=== PATIENT | male | born 1980 | race African-American/Black ===

== ENCOUNTER 2017-09-28 15:42 | Emergency (ER) | payer OTHER ==
[~2017-09-28] VITALS: Ht 182.9 cm; Wt 136.1 kg
[~2017-09-28 15:42] MED LIST: ALBUTEROL2.5 MG/0.5 IH; AMLODIPINE BESY10 MG PO; AMOXICILLIN 50500 M1 PO; CLONIDINE HCL0.2 M2 PO; CLONIDINE-TTS0.3 MG TRANSDERM; COMBIVENT INH; COMBIVENT RESPIM4 GM INH; HYDROCHLOROTHIA25 M1 PO; KLOR-CON 1010 MEQ PO; LASIX 40 MG TAB40 M2 PO; LEVAQUIN 750 M750 MG PO; LISINOPRIL10 MG PO; NOHOMEMEDICATIONS; NORVASC10 MG PO; PREDNISOLONE 5 M5 MG PO; PREDNISONE 10 M10 M1 PO; PREDNISONE 20 M20 M1 PO; PREDNISONE 20 M20 MG PO; PREDNISONE50 MG PO; ULTRAM 50MG TAB50 MG PO; VENTOLIN HFA 1818 GM INH; VENTOLIN HFA INH8 GM INH; ZESTRIL20 MG PO
[2017-09-28] MEDS ORDERED: ULTRAM 50MG TAB50 MG PO (16:54)
[2017-09-28] MEDS ORDERED: KEFLEX500 M1 PO (16:54)
[2017-09-28] MEDS ORDERED: TESSALON PERLE100 MG PO (16:54)
[2017-09-28] MEDS ORDERED: LISINOPRIL10 MG PO (17:03)
[2017-09-28] MEDS ORDERED: NORVASC5 MG PO (17:03)
[2017-09-28 17:15] VITALS: BP 176/101
== END 2017-09-28 17:20 | disposition home or self-care (01) ==
LOC: ER 15:42
DX: J20.8 Acute bronchitis due to other specified organisms (principal); B97.89 Other viral agents as the cause of diseases classified elsewhere; Z91.14 Patient's other noncompliance with medication regimen; I10 Essential (primary) hypertension; T81.31XA Disruption of external operation (surgical) wound, not elsewhere classified, initial encounter; L03.113 Cellulitis of right upper limb; J45.909 Unspecified asthma, uncomplicated; Z87.891 Personal history of nicotine dependence

== ENCOUNTER 2017-10-09 08:39 | Emergency (ER) | payer OTHER ==
[~2017-10-09] VITALS: Ht 182.9 cm; Wt 136.1 kg
[~2017-10-09 08:39] MED LIST changes: +KEFLEX500 M1 PO; +NORVASC5 MG PO; +TESSALON PERLE100 MG PO
[2017-10-09] MEDS ORDERED: ZYRTEC10 M2 PO (08:53)
[2017-10-09] MEDS ORDERED: MOBIC7.5 MG PO (08:53)
[2017-10-09] MEDS ORDERED: NEO-POLYMYXIN-H10 ML OTIC (09:03)
[2017-10-09 10:35] VITALS: BP 157/84
== END 2017-10-09 10:38 | disposition home or self-care (01) ==
LOC: ER 08:39
DX: G89.29 Other chronic pain (principal); M25.571 Pain in right ankle and joints of right foot; H60.92 Unspecified otitis externa, left ear; I10 Essential (primary) hypertension; J45.909 Unspecified asthma, uncomplicated; Z87.891 Personal history of nicotine dependence; Z91.013 Allergy to seafood

== ENCOUNTER 2017-12-11 01:30 | Emergency (ER) | payer OTHER ==
[~2017-12-11] VITALS: Ht 193 cm; Wt 131.5 kg
--- NOTE | ~2017-12-11 | EKG ---
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1980 Requested By: Ford Patton Order Number: [id number] MD: Teofilo Lopez Measurements Intervals [place] Rate: 81 P: -26 [place]: 159 QRS: 29 QRSD: 95 T: -55 QT: 448 QTc: 520 Interpretive Statements Sinus rhythm Probable LVH with secondary repol abnrm Prolonged QT interval Compared to ECG 01/16/2014 02:06:31 ST and T wave abnormality is more pronounced Electronically Signed On 12-11-2017 8:30:18 CDT by Teofilo Lopez [email or web address] <ELECTRONICALLY SIGNED> By: Teofilo Lopez MD, [facility] 12/11/17 0830 0148 0148 Teofilo Lopez MD, [facility] /EPI
[~2017-12-11 01:30] MED LIST changes: +MOBIC7.5 MG PO; +NEO-POLYMYXIN-H10 ML OTIC; +ZYRTEC10 M2 PO
[2017-12-11 02:46] LABS: ABSOLUTE NEUTROPHILS 4.8 thou/uL (1.4-8.2); BASOPHILS 0.8 % (0.0-2.0); EOSINOPHILS 1.8 % (0.0-3.0); HEMATOCRIT 42.8 % (42.0-52.0); HEMOGLOBIN 14.5 gm/dL (14.0-18.0); LYMPHOCYTES 29.5 % (24.0-44.0); MCH 30.7 pg (26.0-34.0); MCHC 33.7 g/dL (28.0-37.0); MCV 90.9 fL (80.0-100.0); MONOCYTES 5.7 % (1.0-8.0); PLATELET COUNT 269 thou/uL (150-400); POLYS 62.2 % (36.0-66.0); RBC 4.71 mil/uL (4.50-6.00); RDW 13.5 % (10.5-14.5); WBC 7.8 thou/uL (4.0-11.0)
[2017-12-11 02:53] LABS: ANION GAP 10 mmol/L (7-16); BUN 18 mg/dL (7-18); CALCIUM 9.3 mg/dL (8.5-10.1); CHLORIDE 107 mmol/L (98-107); CO2 27 mmol/L (21-32); CREATININE 1.6 mg/dL (0.7-1.3); GLUCOSE 123 mg/dL (74-106); POTASSIUM 3.3 mmol/L (3.5-5.1); SODIUM 144 mmol/L (136-145)
[2017-12-11 03:02] LABS: TROPONIN-I < 0.04 ng/mL (<0.06)
== END 2017-12-11 03:16 | disposition home or self-care (01) ==
LOC: ER 01:30
PROVIDERS: Emergency Medicine
DX: R07.9 Chest pain, unspecified (principal); R06.02 Shortness of breath; I10 Essential (primary) hypertension; J45.909 Unspecified asthma, uncomplicated; Z87.891 Personal history of nicotine dependence; Z91.013 Allergy to seafood

== ENCOUNTER 2018-04-06 09:37 | Emergency (ER) | payer OTHER ==
[~2018-04-06] VITALS: Ht 180.3 cm; Wt 135.2 kg
--- NOTE | ~2018-04-06 | EKG ---
[address] [address] ELECTROCARDIOGRAM REPORT Name: KURTMENDEZ PRABHU Room #: DEP [facility] [id number] Admission: 04/06/18 Attend Phys: Discharge: 04/06/18 Date of : [birth year] Report #: [id number] THIS REPORT FOR: //name// [facility] ED Test Date: 2018-04-06 Test Time: 10:01:49 Pat Name: MENDEZ HICKS Department: Room: Gender: M Cloth Cutter: Elena Juarez : 1980 Requested By: Celena Cobian Order Number: [id number] MD: Felipe Paez Measurements Intervals [place] Rate: 85 P: 180 [place]: 132 QRS: 148 QRSD: 97 T: 194 QT: 370 QTc: 440 Interpretive Statements Sinus rhythm No ischemia Electronically Signed On 04-06-2018 11:02:18 CDT by Felipe Paez [email or web address] <ELECTRONICALLY SIGNED> By: Felipe Paez MD 04/06/18 1102 1001 1001 Felipe Paez MD /ISABELLA
[2018-04-06] MEDS ORDERED: ZOLOFT100 MG PO ×2 (09:49→09:51)
[2018-04-06] MEDS ORDERED: ZESTRIL10 MG PO (09:51)
[2018-04-06] MEDS ORDERED: NORVASC5 MG PO (09:51)
[2018-04-06 10:03] LABS: ABSOLUTE NEUTROPHILS 5.5 thou/uL (1.4-8.2); BASOPHILS 0.8 % (0.0-2.0); EOSINOPHILS 1.5 % (0.0-3.0); HEMATOCRIT 39.8 % (42.0-52.0); HEMOGLOBIN 13.4 gm/dL (14.0-18.0); LYMPHOCYTES 16.1 % (24.0-44.0); MCH 30.2 pg (26.0-34.0); MCHC 33.6 g/dL (28.0-37.0); MCV 89.7 fL (80.0-100.0); MONOCYTES 5.5 % (1.0-8.0); PLATELET COUNT 226 thou/uL (150-400); POLYS 76.1 % (36.0-66.0); RBC 4.43 mil/uL (4.50-6.00); RDW 13.2 % (10.5-14.5); WBC 7.2 thou/uL (4.0-11.0)
[2018-04-06 10:12] LABS: ANION GAP 8 mmol/L (7-16); BUN 16 mg/dL (7-18); CALCIUM 8.8 mg/dL (8.5-10.1); CHLORIDE 107 mmol/L (98-107); CO2 25 mmol/L (21-32); CREATININE 1.8 mg/dL (0.7-1.3); GLUCOSE 121 mg/dL (74-106); POTASSIUM 3.2 mmol/L (3.5-5.1); SODIUM 140 mmol/L (136-145)
[2018-04-06 10:20] LABS: TROPONIN-I <0.06 ng/mL (<0.06)
== END 2018-04-06 10:37 | disposition home or self-care (01) ==
LOC: ER 09:37
PROVIDERS: Emergency Medicine
DX: I16.0 Hypertensive urgency (principal); E87.6 Hypokalemia; R94.31 Abnormal electrocardiogram [ECG] [EKG]; E66.9 Obesity, unspecified; F17.210 Nicotine dependence, cigarettes, uncomplicated; J45.909 Unspecified asthma, uncomplicated; Z68.45 Body mass index [BMI] 70 or greater, adult; Z91.013 Allergy to seafood